=== PATIENT | male | born 1965 | race Caucasian/White ===

== ENCOUNTER 2018-10-28 09:05 | Emergency (ER) | payer BC ==
[~2018-10-28] VITALS: Ht 177.8 cm; Wt 90.7 kg
[2018-10-28 09:43] LABS: BASOPHILS ABSOLUTE AUTO 0.04 K/mm3 (0.00-0.23); BASOPHILS PERCENT AUTO 1 % (0-2); EOSINOPHILS ABSOLUTE AUTO 0.08 K/mm3 (0.00-0.68); EOSINOPHILS PERCENT AUTO 1 % (0-6); Hematocrit 40.9 % (37.0-53.0); IMMATURE GRAN ABSOLUTE AUTO 0.01 K/mm3 (0.00-0.10); IMMATURE GRAN PERCENT AUTO 0 % (0-1); LYMPHOCYTES ABSOLUTE AUTO 1.85 K/mm3 (0.84-5.20); LYMPHOCYTES PERCENT AUTO 26 % (21-46); MONOCYTES ABSOLUTE AUTO 0.66 K/mm3 (0.16-1.47); MONOCYTES PERCENT AUTO 9 % (4-13); Mean Corpuscular HGB 28.4 pg (26.0-34.0); Mean Corpuscular HGB Conc 31.8 g/dL (31.5-36.5); Mean Corpuscular Volume 90 fL (80-100); NEUTROPHILS ABSOLUTE AUTO 4.43 K/mm3 (1.96-9.15); NEUTROPHILS PERCENT AUTO 63 % (41-73); Platelet Count 276 K/mm3 (150-400); RDW Coefficient Variation 13.9 % (11.7-14.2); Red Blood Cell Count 4.57 M/mm3 (4.30-5.90); White Blood Cell Count 7.07 K/mm3 (4.00-11.30)
[2018-10-28 09:53] LABS: Alanine Aminotransfer (ALT/SGP 27 U/L (12-78); Albumin, Blood 3.8 g/dL (3.4-5.0); Albumin/Globulin Ratio 1.2 (0.8-1.8); Alk Phos 51 U/L (50-136); Anion Gap 10 mmol/L (6-16); Aspartate Aminotrans (AST/SGOT 21 U/L (12-37); Bilirubin, Total 0.4 mg/dL (0.1-1.0); Blood Urea Nitrogen 17 mg/dL (8-24); Bun/Creatinine Ratio 13.1 (12.0-20.0); CO2, Blood 25 mmol/L (21-32); Calcium, Blood 8.3 mg/dL (8.5-10.1); Chloride, Blood 107 mmol/L (98-108); Globulin, Blood 3.3 g/dL (2.2-4.0); Glomerular Filtration Rate >60 (60-); Glucose, Blood 123 mg/dL (70-99); Potassium, Blood 3.5 mmol/L (3.5-5.5); Sodium, Blood 142 mmol/L (136-145); Total Protein, Blood 7.1 g/dL (6.4-8.2)
[2018-10-28 12:47] LABS: Source, Urine Clean Catch
[2018-10-28 12:54] LABS: Bilirubin, Urine Neg (Neg); Blood, Urine 3+ (Neg); Glucose Qualitative, Urine Neg (Neg); Ketones, Urine 1+ (Neg); Leukocyte Esterase, Urine Neg (Neg); Nitrite, Urine Neg (Neg); Protein, Urine Neg (Neg); Urobilinogen, Urine NORM (Normal); pH, Urine 6.5 (5.0-8.0)
[2018-10-28 13:24] LABS: Appearance, Urine Clear (Clear); Color, Urine Yellow (P-Yellow)
[2018-10-28 13:28] LABS: Bacteria Rare /hpf; Mucus Light (0-Heavy); Squamous Epithelial Cells Not Seen /hpf (Few)
[2018-10-28] MEDS ORDERED: ONDA4ODT MM (13:39)
[2018-10-28] MEDS ORDERED: IBUP600 PO (13:39)
[2018-10-28] MEDS ORDERED: Percocet 5-3251 EACH PO (13:39)
== END 2018-10-28 13:50 | disposition home or self-care (01) ==
LOC: ER 09:05
PROVIDERS: Emergency Medicine
DX: N13.2 Hydronephrosis with renal and ureteral calculous obstruction (principal); Z88.0 Allergy status to penicillin
CPT/HCPCS: 36415; 51798; 74176; 80053; 81001; 85025; 96361; 96374; 96375; 99284-25; J1170; J1885; J2060; J2405; J7030

== ENCOUNTER 2021-03-06 11:10 | Emergency (ER) | payer OTHER, BC ==
[~2021-03-06] VITALS: Ht 182.9 cm; Wt 81.7 kg
[~2021-03-06 11:10] MED LIST: IBUP600 PO; ONDA4ODT MM; Percocet 5-3251 EACH PO
[2021-03-06] MEDS ORDERED: METPRE4DP PO (11:35)
[2021-03-06] MEDS ORDERED: CYCL10 (11:35)
[2021-03-06] MEDS ORDERED: NEURONTIN300 MG PO (11:35)
[2021-03-06] MEDS ORDERED: NORCO 7.5-3251 EAC1 (11:35)
[2021-03-06] MEDS ORDERED: Voltaren100 GM TOP (13:16)
[2021-03-06] MEDS ORDERED: TIZA4 PO (13:16)
[2021-03-06] MEDS ORDERED: Percocet 7.5-31 EACH PO (13:16)
[2021-03-06] MEDS ORDERED: LIDO700A20 TOP (13:16)
== END 2021-03-06 13:32 | disposition home or self-care (01) ==
LOC: ER 11:10
DX: M54.42 Lumbago with sciatica, left side (principal); Z88.0 Allergy status to penicillin; Z79.899 Other long term (current) drug therapy; Z87.891 Personal history of nicotine dependence
CPT/HCPCS: 96372; 99283-25; A9270; J1170; J1885

== ENCOUNTER 2021-03-08 16:31 | Emergency (ER) | payer OTHER, BC ==
[~2021-03-08] VITALS: Ht 182.9 cm; Wt 81.7 kg
[~2021-03-08 16:31] MED LIST changes: +CYCL10; +LIDO700A20 TOP; +METPRE4DP PO; +NEURONTIN300 MG PO; +NORCO 7.5-3251 EAC1; +Percocet 7.5-31 EACH PO; +TIZA4 PO; +Voltaren100 GM TOP
== END 2021-03-08 16:53 | disposition home or self-care (01) ==
LOC: ER 16:31
DX: Z02.79 Encounter for issue of other medical certificate (principal); Z79.899 Other long term (current) drug therapy; Z87.891 Personal history of nicotine dependence
CPT/HCPCS: 99281

== ENCOUNTER 2021-05-27 09:12 | Emergency (ER) | payer OTHER, BC ==
[~2021-05-27] VITALS: Ht 182.9 cm; Wt 83.9 kg
[2021-05-27] MEDS ORDERED: Percocet 5-3251 EACH PO (11:06)
[2021-05-27] MEDS ORDERED: CYCLOBENZAPRINE5 MG PO (11:06)
[2021-05-27] MEDS ORDERED: IBUP400 PO (11:06)
== END 2021-05-27 12:00 | disposition home or self-care (01) ==
LOC: ER 09:12
DX: M54.42 Lumbago with sciatica, left side (principal); G89.29 Other chronic pain; Z88.0 Allergy status to penicillin; Z79.899 Other long term (current) drug therapy; Z87.891 Personal history of nicotine dependence
CPT/HCPCS: 96372; 99282-25; A9270; J1885

== ENCOUNTER 2022-06-24 16:50 | Emergency (ER) | payer BC ==
[~2022-06-24] VITALS: Ht 182.9 cm; Wt 86.2 kg
[~2022-06-24 16:50] MED LIST changes: +CYCLOBENZAPRINE5 MG PO; +IBUP400 PO
[2022-06-24] MEDS ORDERED: CYCL10 PO (22:45)
[2022-06-24] MEDS ORDERED: OXYC5 PO (22:45)
[2022-06-24] MEDS ORDERED: LIDOCAINE1 EACH TOP (22:45)
== END 2022-06-24 23:10 | disposition home or self-care (01) ==
LOC: ER 16:50
DX: M54.50 Low back pain, unspecified (principal); G89.29 Other chronic pain; Z79.899 Other long term (current) drug therapy; Z88.0 Allergy status to penicillin
CPT/HCPCS: A9270; J1170; J1885